=== PATIENT | male | born 1975 | race Caucasian/White ===

== ENCOUNTER → 2017-12-20 | Outpatient (CLI) | payer OTHER ==
[~2017-12-20] MED LIST: FLUO40CA8 PO; LISI40TA PO; LVT/20 PO; NALO1TAB2; OXYC-106 PO; OXYC1TAB PO
== END ==
LOC: C.PAIN 12:05

== ENCOUNTER → 2017-12-20 | Outpatient (CLI) | payer OTHER ==
--- NOTE | 2017-12-20 12:42 | DIAGNOSTIC IMAGING REPORT ---
THORACOLUMBAR SPINE 2 VIEWS CLINICAL HISTORY: LEAD PLACEMENT COMPARISON STUDY: None FINDINGS: Epidural bile stimulator enters the L1-L2 level. It proceeds dorsally within the spinal canal at the superior fashion to the level of the superior aspect of T8. The lead appears to be intact. IMPRESSION: Epidural bio stimulator placement with the superior aspect of the electrode at the superior endplate of T8. The above report was generated using voice recognition software. It may contain grammatical, syntax or spelling errors. Electronically signed by: Joel Dias M.D. 12/20/2017 12:41 PM Dictated Date/Time: 12/20/2017 12:40 PM
== END | disposition home or self-care (01) ==
LOC: C.RADBC 12:09
PROVIDERS: ATTEND Anesthesiology
DX: Z00.6 Encounter for examination for normal comparison and control in clinical research program (principal); Z46.2 Encounter for fitting and adjustment of other devices related to nervous system and special senses

== ENCOUNTER 2018-02-10 10:09 | Day surgery (SDC) | payer OTHER ==
[2018-01-27 15:52] VITALS: BMI 33.0
[~2018-02-10] VITALS: Ht 177.8 cm; Wt 104.5 kg
[~2018-02-10 10:09] MED LIST changes: +ACETAMINOPHEN 500 MG TAB PO SCH; +BACL10TA PO; +CEFAZOLIN 2000MG IV PUSH 15 ML IV SCH; +CeleBREX 200 MG CAP PO SCH; +GABAPENTIN 900 MG PO SCH; +LACTATED RINGER'S 1000ML 1,000 ML IV SCH; +MULT-506 PO; -NALO1TAB2; +NALO1TAB2 PO
[2018-02-10 11:16] VITALS: BP 139/87; PULSE 53; TEMP 36.7; O2SAT 95; Ht 177.8 cm; Wt 104.5 kg
[2018-02-10] MEDS ORDERED: NEOSTIGMINE METHYLSULFATE 1 MG/ML 10ML VIAL ONE (12:17)
[2018-02-10] MEDS ORDERED: ROCURONIUM BROMIDE 10 MG/ML 5 ML VIAL ONE (12:17)
[2018-02-10] MEDS ORDERED: LIDOCAINE HCL 2% 2 ML VIAL (20MG/ML) ONE (12:17)
[2018-02-10] MEDS ORDERED: GLYCOPYRROLATE INJ 0.2 MG/ML VIAL ONE (12:17)
[2018-02-10] MEDS ORDERED: PROPOFOL IV EMULSION 10 MG/ML 20 ML VIAL ONE (12:17)
[2018-02-10] MEDS ORDERED: DEXAMETHASONE SOD INJ 4 MG/ML VIAL ONE (12:17)
[2018-02-10] MEDS ORDERED: ONDANSETRON INJ 2 MG/ML 2 ML VIAL ONE (12:17)
[2018-02-10] MEDS ORDERED: MIDAZOLAM HCL 1 MG/ML 2ML VIAL ONE (12:18)
[2018-02-10] MEDS ORDERED: FENTANYL CITRATE INJ 50 MCG/1 ML 2 ML VIAL ONE ×2 (12:18→13:50)
[2018-02-10] MEDS ORDERED: ATROPINE SULFATE 0.1 MG/ML 5ML SYR IV PRN (12:30)
[2018-02-10] MEDS ORDERED: EpHEDrine SULFATE INJ 50 MG/ML AMP IV PRN (12:30)
[2018-02-10] MEDS ORDERED: ONDANSETRON INJ 2 MG/ML 2 ML VIAL IV PRN (12:30)
[2018-02-10 12:46] LABS: CREATININE 0.87 mg/dl (0.60-1.40); POTASSIUM 3.8 mmol/L (3.5-5.1)
[2018-02-10 12:47] LABS: CALCIUM 8.9 mg/dl (8.5-10.1)
--- NOTE | 2018-02-10 12:56 | History & Physical Bridge Note ---
H&P Re-Evaluation Bridge Note: I have examined the patient, reviewed the History & Physical and in the interval since the performance of the History & Physical I have noted the following changes of clinical significance: No changes noted
--- NOTE | 2018-02-10 12:57 | History and Physical ---
History & Physical Date February 10, 2018. Chief Complaint Chronic back and leg pain History of Present Illness The patient is a 42 year old male with complaints of chronic back and leg pain Additional History Hepatic Disease: No Endocrine Disorder: No Kidney Disease: No Hypertension: Yes Heart Disease: No Bleeding Tendencies: No Infectious Diseases: No Allergies Coded Allergies: Vancomycin (Unverified Allergy, Unknown, RASH, 02/10/18) Home Medications Scheduled Fluoxetine (Prozac), 40 MG PO QAM Lisinopril (Prinivil), 40 MG PO QAM Multivitamin (Multivitamin), 1 TAB PO BID Naloxegol Oxalate (Movantik), 25 MG PO QAM Oxycodone Ir (Roxicodone Ir), 1 TAB PO BID Vardenafil (Levitra), 20 MG PO DIRECTED Scheduled PRN Baclofen (Lioresal), 20 MG PO BID PRN for RN Oxycodone/Acetaminophen 10MG/325MG (Percocet 10MG/325MG), 1 TAB PO QID PRN for Pain Physical Examination Skin: warm/dry, no rash Eyes: normal inspection, EOMI, sclerae normal ENT: normal ENT inspection, pharynx normal Head: normocephalic, atraumatic Neck: supple, no adenopathy, trachea midline Respiratory/Chest: lungs clear, normal breath sounds, no respiratory distress Cardiovascular: regular rate, rhythm, no edema, no murmur Abdomen / GI: normal bowel sounds, non tender Back: normal inspection Extremities: normal inspection, normal range of motion Neurologic/Psych: no motor/sensory deficits, alert, normal reflexes, oriented x 3 Diagnosis Chronic back and leg pain Plan of Treatment Spinal cord stimulator placement
[2018-02-10] MEDS ORDERED: BUPIVACAINE 0.5 % 5 MG/1 ML MPF 30ML VIAL ONE (13:28)
[2018-02-10] MEDS ORDERED: BACITRACIN 50000 UNIT VIAL ONE (13:28)
[2018-02-10] MEDS ORDERED: FLOSEAL HEMOSTATIC MATRIX 5ML TOP ONE (14:25)
--- NOTE | 2018-02-10 14:33 | [facility] Operative Report ---
Operative Report Operative Date February 10, 2018. Pre-Operative Diagnosis Chronic back and leg pain Post-Operative Diagnosis Chronic back and leg pain Procedure(s) Performed 1. T10 laminotomy. #2 placement of 16-lead dorsal column stimulator paddle with rechargeable battery. Surgeon Dr. Bhakta [employer] Supervisor Surgeon(s) Marty Sánchez PA-C Estimated Blood Loss 50 ml Specimens none per surgeon Anesthesia Type General Description of Procedure Patient was met with preoperatively case discussed all questions addressed. After informed consent obtained patient was taken to the operative suite underwent intubation and placed in a prone position the Prabhakar table on top of the Joshua frame. All bony prominences well-padded eyes inspected to ensure no external pressure placed upon the. This point the third lumbar spine was prepped and draped in normal sterile fashion. With the assistance of fluoroscopy identified the T10-T11 interspace. A midline incision was created overlying this region. Sharp dissection with the assistance of Bovie cautery was performed down to and exposing the interlaminar space at T10-11. Midline laminotomy was performed large enough to place the 16-lead dorsal column similar paddle. This was placed and verified for position. Legs were then sewn into position. I then created a pocket over the right flank large enough for the battery. Using a trocar the leads were passed into the pocket site and attached the battery. The batteries and tested for efficacy and placed within the battery pocket. All incisions were then copiously irrigated closed with subcutaneous Vicryl and 4 Monocryl for fashion closure. Steri-Strips sterile dressings placed. Patient will continue PACU stable discrete please note Manuelito Sánchez was present throughout the entire procedure involved in patient positioning complex portions of the surgery and fashion closure. I attest to the content of the Intraoperative Record and any orders documented therein. Any exceptions are noted below.
[2018-02-10] MEDS ORDERED: OXYC1TAB PO (14:34)
[2018-02-10] MEDS ORDERED: OXYC-106 PO (14:34)
--- NOTE | 2018-02-10 14:35 | Discharge Instructions ---
Discharge Instructions Date of Service February 10, 2018. Admission Reason for Admission: Lumbar Post-Laminectomy Syndrome Discharge Discharge Diagnosis / Problem: chronic back and leg pain Discharge Goals Goal(s): Improve function Activity Recommendations Activity Limitations: per Instructions/Follow-up section . Instructions / Follow-Up Instructions / Follow-Up ACTIVITY RECOMMENDATIONS: SELF CARE INSTRUCTIONS AFTER A LAMINECTOMY 1. No prolonged sitting (less than 30 minutes for the first 3 weeks after surgery). 2. No bending, lifting more than 5 pounds, or twisting (roll like a log when turning in bed). 3. You may shower 3 days after surgery if no drainage from wound. Thoroughly dry wound. Do not soak in the tub. 4. Please walk as much as you can for exercise. Gradually increase the distance that you walk as your endurance increases. 5. You may drive in 7-10 days if you are comfortable and no longer requiring pain medications. SPECIAL CARE INSTRUCTIONS: VERY IMPORTANT TO READ AND REVIEW A. Your surgical incision has been closed with a cosmetic suture under the skin that will dissolve in about 6 weeks. In 14 days, you can use a pair of clean scissors and cut the suture that is left outside of the skin at the ends of your incision. B. Complications are uncommon, but please contact us if you have any signs or symptoms of: 1. wound infection (fever higher than 102.5 degrees F, redness, separation of wound, drainage, or increasing pain from the incision) 2. blood clots in legs (pain, swelling, redness and warmth in legs) 3. urinary tract infection (fever higher than 102.5 degrees, burning upon urination or increased frequency of urination) 4. nerve problems (inability to walk on your toes or heels, numbness, loss of bowel or bladder control) 5. any other symptoms that concern you. C. Please call the office at if you have any concerns or questions about your operation or recovery. MANAGING PAIN AFTER SPINAL SURGERY 1. Narcotic medication is intended for short-term use and will be provided for surgical pain. Surgical pain usually lasts for a period of 4-6 weeks. Narcotic medication includes Percocet, Vicodin, Darvocet, Tylenol #3 or Lortab. 2. Longer-term pain is more appropriately treated with non-narcotic medication such as Tylenol ES. 3. Muscle spasm is not appropriately treated with narcotics. Muscle relaxers such as Soma, Flexeril or Skelaxin can be used along with Tylenol ES. 4. Remember that we all live with some "aches and pains". This is not unusual or uncommon after an injury or as we get older. 5. We will provide appropriate medication within the normal guidelines of their prescribed use. We will also be very cautious and aware of potential abuse and extended duration of patients' medication needs. 6. Please allow 2-3 days to process refills. Prescriptions will not be mailed but must be picked up at the office. FOLLOW UP VISIT: Keep your scheduled follow-up appointment. Any questions, please call the office at . Current Hospital Diet Patient's current hospital diet: Discharge Diet Recommended Diet: Regular Diet Procedures Procedures Performed: 1. T10 laminotomy. #2 placement of 16-lead dorsal column stimulator paddle with rechargeable battery. Pending Studies Studies pending at discharge: no Medical Emergencies . Who to Call and When: Medical Emergencies: If at any time you feel your situation is an emergency, please call 911 immediately. . Non-Emergent Contact Non-Emergency issues call your: Primary Care Provider . "Provider Documentation" section prepared by Sam Bhakta. .
[2018-02-10] MEDS ORDERED: KETOROLAC TROMETHAMINE 30 MG/ML VIAL IV. PRN (14:45)
[2018-02-10] MEDS ORDERED: OXYCODONE HCL IR 5 MG TAB (IMMEDIATE RELEASE) PO PRN (14:45)
[2018-02-10] MEDS ORDERED: ACETAMINOPHEN 325 MG TAB PO PRN (14:45)
[2018-02-10] MEDS ORDERED: HYDROmorphone INJ 2 MG/ML SYR/VIAL IV PRN (14:45)
[2018-02-10] MEDS ORDERED: ACETAMINOPHEN 650 MG SUPP PR PRN (14:45)
--- NOTE | 2018-02-10 14:48 | DIAGNOSTIC IMAGING REPORT ---
INTRAOPERATIVE LUMBAR SPINE 2 VIEWS CLINICAL HISTORY: SPINAL CORD STIMULATOR PLACEMENT COMPARISON STUDY: No previous studies for comparison. FINDINGS: 7 seconds of fluoroscopic time was utilized. 2 intraoperative fluoroscopic spot images are provided for interpretation. A spinal cord stimulator is visualized. There are electrodes extending to the inferior T8 level. IMPRESSION: Spinal cord stimulator with electrodes extending to the inferior T8 level Electronically signed by: Edson Peters M.D. 02/10/2018 2:46 PM Dictated Date/Time: 02/10/2018 2:45 PM
[2018-02-10] MEDS: FENTANYL CITRATE INJ 50 MCG/1 ML 2 ML VIAL IV PRN ×2 (15:11→15:18)
--- NOTE | 2018-02-10 15:12 | Anesthesiology Progress Note ---
Anesthesia Post Op Note Date & Time February 10, 2018 at 15:12 Vital Signs Pain Intensity: 0 Vital Signs Past 12 Hours Date Time Temp Pulse Resp B/P (MAP) Pulse Ox O2 Delivery O2 Flow Rate FiO2 02/10/18 14:59 36.6 84 16 172/95 100 Oxymask 10 02/10/18 11:16 36.7 53 16 139/87 (104) 95 Room Air Notes Mental Status: alert / awake / arousable, participated in evaluation Pt Amnestic to Procedure: Yes Nausea / Vomiting: adequately controlled Pain: adequately controlled Airway Patency, RR, SpO2: stable & adequate BP & HR: stable & adequate Hydration State: stable & adequate Anesthetic Complications: no major complications apparent
[2018-02-10] MEDS ORDERED: KETOROLAC TROMETHAMINE 30 MG/ML VIAL ONE (15:23)
[2018-02-10 16:30] VITALS: BP 149/90; PULSE 63; TEMP 36.7; O2SAT 97
== END 2018-02-10 16:35 | disposition home or self-care (01) ==
LOC: C.ACU 10:09
PROVIDERS: ATTEND Orthopaedic Surgery Orthopaedic Surgery of the Spine
DX: M54.9 Dorsalgia, unspecified (principal); M79.606 Pain in leg, unspecified; G89.29 Other chronic pain; M96.1 Postlaminectomy syndrome, not elsewhere classified; G47.33 Obstructive sleep apnea (adult) (pediatric); Z99.89 Dependence on other enabling machines and devices; I10 Essential (primary) hypertension; Z86.14 Personal history of Methicillin resistant Staphylococcus aureus infection